=== PATIENT | female | born 1985 | race Caucasian/White ===

== ENCOUNTER 2016-07-05 15:47 | Emergency (ER) | payer BC, OTHER ==
[2016-07-05 16:01] VITALS: BP 123/76; PULSE 104; RESP 20; TEMP 98.3
--- NOTE | 2016-07-05 16:54 | XR ---
EXAMINATION TYPE: XR chest 2V DATE OF EXAM: 07/05/2016 4:46 PM COMPARISON: 07/08/2010 INDICATION: Pain sore throat cough TECHNIQUE: Single frontal view of the chest is obtained. FINDINGS: The heart size is normal. The pulmonary vasculature is normal. The lungs are clear. IMPRESSION: 1. No acute pulmonary process.
--- NOTE | 2016-07-05 16:56 | ED ---
Pediatric HENT HPI - General Chief Complaint: ENT Stated Complaint: Cough Time Seen by Provider: 07/05/16 16:08 Source: patient, RN notes reviewed Mode of arrival: ambulatory Limitations: no limitations - History of Present Illness Initial Comments: Patient is a 30-year-old female presenting to the emergency department with her 2 children with similar symptoms of cough and sore throat. Patient reports that she's had the symptoms for approximately one day. She states that she is not had any Motrin or Tylenol. She denies any significant past medical history. Patient is a smoker. - Related Data Home Medications Medication Instructions Recorded Confirmed Hydroxychloroquine Sulfate 200 mg PO BID 10/17/15 07/05/16 [Plaquenil] Sulindac 200 mg PO BID 10/17/15 07/05/16 Allergies Allergy/AdvReac Type Severity Reaction Status Date / Time adhesive Allergy Rash/Hives Verified 07/05/16 16:36 Penicillins Allergy Rash/Hives Verified 07/05/16 16:36 Sulfa (Sulfonamide Allergy Rash/Hives Verified 07/05/16 16:36 Antibiotics) sulfite Allergy Rash/Hives Verified 07/05/16 16:36 Review of Systems ROS Statement: Those systems with pertinent positive or pertinent negative responses have been documented in the HPI. ROS Other: All systems not noted in ROS Statement are negative. Past Medical History Past Medical History: Rheumatoid Arthritis (RA) Additional Past Medical History / Comment(s): Migraines, blood in stool, History of Any Multi-Drug Resistant Organisms: None Reported Past Surgical History: Adenoidectomy, Tonsillectomy Additional Past Surgical History / Comment(s): Laparoscopy-ovarian cyst; Nasal surgery-fx Past Anesthesia/Blood Transfusion Reactions: No Reported Reaction Past Psychological History: Depression Smoking Status: Current some day smoker Past Alcohol Use History: None Reported Additional Past Alcohol Use History / Comment(s): smokes 1/2 PPD , started smoking age 18 Past Drug Use History: None Reported - Past Family History Mother Family Medical History: No Reported History Additional Family Medical History / Comment(s): Endometriosis General Exam Limitations: no limitations General appearance: alert, in no apparent distress Head exam: Present: atraumatic, normocephalic, normal inspection Eye exam: Present: normal appearance, PERRL, EOMI. Absent: scleral icterus, conjunctival injection, periorbital swelling ENT exam: Present: normal exam, mucous membranes moist Neck exam: Present: normal inspection. Absent: tenderness, meningismus, lymphadenopathy Respiratory exam: Present: normal lung sounds bilaterally. Absent: respiratory distress, wheezes, rales, rhonchi, stridor Cardiovascular Exam: Present: regular rate, normal rhythm, normal heart sounds. Absent: systolic murmur, diastolic murmur, rubs, gallop, clicks GI/Abdominal exam: Present: soft, normal bowel sounds. Absent: distended, tenderness, guarding, rebound, rigid Extremities exam: Present: normal inspection, full ROM, normal capillary refill. Absent: tenderness, pedal edema, joint swelling, calf tenderness Back exam: Present: normal inspection Neurological exam: Present: alert, oriented X3, CN II-XII intact Psychiatric exam: Present: normal affect, normal mood Skin exam: Present: warm, dry, intact, normal color. Absent: rash Course Vital Signs 07/05/16 07/05/16 16:00 18:18 Temperature 98.3 F 98.3 F Pulse Rate 104 H 104 H Respiratory 20 20 Rate Blood Pressure 123/76 123/76 O2 Sat by Pulse 97 97 Oximetry Medical Decision Making - Medical Decision Making Patient is a d30 year old female with cough and congestion for one day. CXR is negative. Patient has no wheezing. She is a smoker. I advised to discontinue smoking and purchase OTC cough medication. Patient's children's flu was negative. Patient understands treatment plan and will comply. - Radiology Data Radiology results: report reviewed Physical x-rays negative for any acute process. Disposition Clinical Impression: Upper respiratory infection Disposition: HOME SELF-CARE Condition: Good Instructions: Upper Respiratory Infection (ED) Additional Instructions: Rest, increase fluids, follow-up with primary care provider in 1-2 days. Take tylenol and motrin for pain. Referrals: Abran Siu MD [Primary Care Provider] - 1-2 days Time of Disposition: 17:52
== END 2016-07-05 18:18 | disposition home or self-care (01) ==
LOC: EC 15:47
DX: J06.9 Acute upper respiratory infection, unspecified (principal); M19.90 Unspecified osteoarthritis, unspecified site; F17.200 Nicotine dependence, unspecified, uncomplicated; Z79.1 Long term (current) use of non-steroidal anti-inflammatories (NSAID); Z79.899 Other long term (current) drug therapy; Z88.0 Allergy status to penicillin; Z88.2 Allergy status to sulfonamides; Z91.048 Other nonmedicinal substance allergy status; Z90.89 Acquired absence of other organs
CPT/HCPCS: 71020; 99283

== ENCOUNTER 2017-06-11 01:39 | Emergency (ER) | payer BC, OTHER ==
[2017-06-11] MEDS ORDERED: CLINDAMYCIN 150 MG CAP PO STA (01:55)
[2017-06-11] MEDS ORDERED: BUPIVACAINE (PF) 0.5% 30 ML VIAL SQ STA (01:56)
--- NOTE | 2017-06-11 01:58 | ED ---
ENT HPI - General Chief complaint: Dental/Oral Stated complaint: dental pain,fall Time Seen by Provider: 06/11/17 01:49 Source: patient Mode of arrival: ambulatory Limitations: no limitations - History of Present Illness Initial comments: 31-year-old female patient presents to the emergency department today for complaints of right lower dental pain. Patient states that she has had pain for the last couple of days. States that tonight is become much worse. She states that the 2 teeth in the very back are broken off at the gumline. She states that the pain is unbearable. States she is unable to eat or drink due to this. States she is unable sleep. She denies any fevers or chills. Denies any nausea or vomiting. Denies any difficulty opening or closing her mouth. Denies any difficulty swallowing. She has not contacted a dentist yet but states she plans to in the morning. States she has taken ibuprofen and acetaminophen without relief. Patient denies any recent rash, shortness breath, chest pain, abdominal pain, diarrhea, constipation, back pain, numbness, tingling, dizziness, weakness, hematuria, dysuria, urinary urgency, urinary frequency, headache, visual changes, or any other complaints. - Related Data Home Medications Medication Instructions Recorded Confirmed Hydroxychloroquine Sulfate 200 mg PO BID 10/17/15 07/05/16 [Plaquenil] Sulindac 200 mg PO BID 10/17/15 07/05/16 Previous Rx's Medication Instructions Recorded Acetaminophen-Codeine 300-30mg 1 tab PO Q6H PRN #15 tablet 06/11/17 [Tylenol #3] Clindamycin HCl 300 mg PO Q8H #30 cap 06/11/17 Allergies Allergy/AdvReac Type Severity Reaction Status Date / Time adhesive Allergy Rash/Hives Verified 06/11/17 01:46 Penicillins Allergy Rash/Hives Verified 06/11/17 01:46 Sulfa (Sulfonamide Allergy Rash/Hives Verified 06/11/17 01:46 Antibiotics) sulfite Allergy Rash/Hives Verified 06/11/17 01:46 Review of Systems ROS Statement: Those systems with pertinent positive or pertinent negative responses have been documented in the HPI. ROS Other: All systems not noted in ROS Statement are negative. Past Medical History Past Medical History: Rheumatoid Arthritis (RA) Additional Past Medical History / Comment(s): Migraines, blood in stool, History of Any Multi-Drug Resistant Organisms: None Reported Past Surgical History: Adenoidectomy, Tonsillectomy Additional Past Surgical History / Comment(s): Laparoscopy-ovarian cyst; Nasal surgery-fx Past Anesthesia/Blood Transfusion Reactions: No Reported Reaction Past Psychological History: Depression Smoking Status: Current some day smoker Past Alcohol Use History: None Reported Past Drug Use History: None Reported - Past Family History Mother Family Medical History: No Reported History Additional Family Medical History / Comment(s): Endometriosis General Exam Limitations: no limitations General appearance: alert, in no apparent distress, other (This is a well- developed, well-nourished adult female patient in mild distress related to pain. Vital signs upon presentation are temperature 99.8F, pulse 92, respirations 18, blood pressure 136/88, pulse ox 100% on room air.) Eye exam: Present: normal appearance, PERRL, EOMI. Absent: scleral icterus, conjunctival injection, periorbital swelling ENT exam: Present: normal exam, normal oropharynx, mucous membranes moist, other (Patient has very poor dentition. Teeth #31 and 32 are broken at the gumline with exposed nerve root. There is surrounding gingival erythema and swelling. No evidence of drainable abscess. No facial swelling.) Neck exam: Present: normal inspection. Absent: tenderness, meningismus, lymphadenopathy Respiratory exam: Present: normal lung sounds bilaterally. Absent: respiratory distress, wheezes, rales, rhonchi, stridor Cardiovascular Exam: Present: regular rate, normal rhythm, normal heart sounds. Absent: systolic murmur, diastolic murmur, rubs, gallop, clicks GI/Abdominal exam: Present: soft, normal bowel sounds. Absent: distended, tenderness, guarding, rebound, rigid Neurological exam: Present: alert, oriented X3, CN II-XII intact Psychiatric exam: Present: normal affect, normal mood Skin exam: Present: warm, dry, intact, normal color. Absent: rash Course Vital Signs 06/11/17 06/11/17 01:43 03:02 Temperature 99.8 F H 98.2 F Pulse Rate 92 68 Respiratory 18 16 Rate Blood Pressure 136/88 134/89 O2 Sat by Pulse 100 99 Oximetry Procedures - Nerve Block Consent Obtained: verbal consent Time Out Performed: Yes Local Anesthetic Used: Marcaine 0.5% Amount of anesthesia used: 3 Side: right Intraoral Nerve Block: inferior alveolar Complications: none Patient Tolerated Procedure: well Medical Decision Making - Medical Decision Making 31-year-old female patient presented to the emergency department today for complaints of right lower dental pain. Physical examination did reveal tooth # 31 and 32 were broken down to the gumline. There was surrounding gingival erythema and swelling. No evidence of drainable abscess. I did perform an intraoral nerve block. Patient did have mild relief of symptoms at time of discharge. Patient was given prescription for Tylenol 3 with codeine and clindamycin. She was given a starter pack for Tylenol 3 and given one dose of clindamycin here in the department. I instructed her to follow-up with dentistry as soon as possible. I instructed her to return here immediately for any new, worsening, or concerning symptoms. She verbalizes understanding and agrees this plan. Disposition Clinical Impression: Pain, dental, Dental infection Disposition: HOME SELF-CARE Condition: Good Instructions: Dental Abscess (ED), Dental Caries (ED) Additional Instructions: Take medications as directed. Follow-up with the dentist as soon as possible. Return here immediately for any new, worsening, or concerning symptoms. Prescriptions: Acetaminophen-Codeine 300-30mg [Tylenol #3] 1 tab PO Q6H PRN #15 tablet PRN Reason: Pain Clindamycin HCl 300 mg PO Q8H #30 cap Referrals: Abran Siu MD [Primary Care Provider] - 1-2 days Time of Disposition: 02:39
[2017-06-11] MEDS ORDERED: ACET/COD 300 MG/30 MG STARTER PACK 6 TAB BTL PO STA (02:37)
[2017-06-11 03:03] VITALS: BP 134/89; PULSE 68; RESP 16; TEMP 98.2
== END 2017-06-11 03:02 | disposition home or self-care (01) ==
LOC: EC 01:39
DX: K04.7 Periapical abscess without sinus (principal); M06.9 Rheumatoid arthritis, unspecified; F17.200 Nicotine dependence, unspecified, uncomplicated; Z79.1 Long term (current) use of non-steroidal anti-inflammatories (NSAID); Z79.899 Other long term (current) drug therapy; Z88.0 Allergy status to penicillin; Z88.2 Allergy status to sulfonamides; Z91.02 Food additives allergy status; Z91.09 Other allergy status, other than to drugs and biological substances
CPT/HCPCS: 64400; 99283

== ENCOUNTER 2017-06-24 23:54 | Emergency (ER) | payer BC ==
[2017-06-25 00:06] VITALS: BP 134/90; PULSE 85; RESP 18; TEMP 97.6
[2017-06-25] MEDS ORDERED: BUPIVACAINE (PF) 0.5% 30 ML VIAL SQ STA (00:43)
[2017-06-25] MEDS ORDERED: ACET/COD 300 MG/30 MG STARTER PACK 6 TAB BTL PO STA (00:45)
[2017-06-25] MEDS ORDERED: CLINDAMYCIN 150 MG CAP PO STA (00:45)
--- NOTE | 2017-06-25 00:47 | ED ---
ENT HPI - General Chief complaint: Dental/Oral Stated complaint: Dental Pain/Abcess Time Seen by Provider: 06/25/17 00:17 Source: patient, RN notes reviewed, old records reviewed Mode of arrival: ambulatory Limitations: no limitations - History of Present Illness Initial comments: 31-year-old female presents emergency room chief complaint of worsening dental pain. She reports that she has infection over the tooth #30 and 29. She was started on clindamycin 2 weeks ago. She was feeling better after she completed the antibiotics with the pain seemed to reoccur the past 2 days. She states that she sees a dentist in one week. She denies any fever or chills. No trismus. - Related Data Home Medications Medication Instructions Recorded Confirmed Hydroxychloroquine Sulfate 200 mg PO BID 10/17/15 07/05/16 [Plaquenil] Sulindac 200 mg PO BID 10/17/15 07/05/16 Previous Rx's Medication Instructions Recorded Acetaminophen-Codeine 300-30mg 1 tab PO Q6H PRN #15 tablet 06/11/17 [Tylenol #3] Clindamycin HCl 300 mg PO Q8H #30 cap 06/11/17 Acetaminophen-Codeine 300-30mg 1 tab PO Q6H PRN #12 tablet 06/25/17 [Tylenol #3] Clindamycin [Cleocin] 450 mg PO TID 7 Days capsule 06/25/17 Allergies Allergy/AdvReac Type Severity Reaction Status Date / Time adhesive Allergy Rash/Hives Verified 06/25/17 00:06 Penicillins Allergy Rash/Hives Verified 06/25/17 00:06 Sulfa (Sulfonamide Allergy Rash/Hives Verified 06/25/17 00:06 Antibiotics) sulfite Allergy Rash/Hives Verified 06/25/17 00:06 Review of Systems ROS Statement: Those systems with pertinent positive or pertinent negative responses have been documented in the HPI. ROS Other: All systems not noted in ROS Statement are negative. Past Medical History Past Medical History: Rheumatoid Arthritis (RA) Additional Past Medical History / Comment(s): Migraines, blood in stool, History of Any Multi-Drug Resistant Organisms: None Reported Past Surgical History: Adenoidectomy, Tonsillectomy Additional Past Surgical History / Comment(s): Laparoscopy-ovarian cyst; Nasal surgery-fx Past Anesthesia/Blood Transfusion Reactions: No Reported Reaction Past Psychological History: Depression Smoking Status: Current some day smoker Past Alcohol Use History: None Reported Past Drug Use History: None Reported - Past Family History Mother Family Medical History: No Reported History Additional Family Medical History / Comment(s): Endometriosis General Exam - General Exam Comments Initial Comments: This is a 31 year old female, no distress. Limitations: no limitations General appearance: alert, in no apparent distress Head exam: Present: atraumatic, normocephalic, normal inspection Eye exam: Present: normal appearance, PERRL, EOMI. Absent: scleral icterus, conjunctival injection, periorbital swelling ENT exam: Present: normal exam, mucous membranes moist, other (Patient has some minor swelling over the right lower jaw.). Absent: normal oropharynx (Patient has minor erythema over gums over 29 and 30. Patient has no focal abscess) Neck exam: Present: normal inspection. Absent: tenderness, meningismus, lymphadenopathy Respiratory exam: Present: normal lung sounds bilaterally. Absent: respiratory distress, wheezes, rales, rhonchi, stridor Cardiovascular Exam: Present: regular rate, normal rhythm, normal heart sounds. Absent: systolic murmur, diastolic murmur, rubs, gallop, clicks GI/Abdominal exam: Present: soft, normal bowel sounds. Absent: distended, tenderness, guarding, rebound, rigid Extremities exam: Present: normal inspection, full ROM, normal capillary refill. Absent: tenderness, pedal edema, joint swelling, calf tenderness Back exam: Present: normal inspection Neurological exam: Present: alert, oriented X3, CN II-XII intact Psychiatric exam: Present: normal affect, normal mood Skin exam: Present: warm, dry, intact, normal color. Absent: rash Course Vital Signs 06/25/17 00:03 Temperature 97.6 F Pulse Rate 85 Respiratory 18 Rate Blood Pressure 134/90 O2 Sat by Pulse 99 Oximetry Procedures - Nerve Block Local Anesthetic Used: Marcaine 0.5% Amount of anesthesia used: 4 Side: right Intraoral Nerve Block: inferior alveolar Procedure Successful: Yes Complications: none Patient Tolerated Procedure: well, no complications Medical Decision Making - Medical Decision Making This patient is a 31-year-old female chief complaint of worsening dental pain. She has evidence of gingival erythema over tooth #30 and 29. These are both broken teeth with multiple dental caries. She has no focal abscess drained this time. She was started on clindamycin and Tylenol with codeine approximately one month ago and had some resolutions of her symptoms. She states she has a dentist appointment in one week. Patient has no trismus, no signs of Binh angina. Patient was given an inferior alveolar block and reports immediate relief. I will discharge the patient with another round of antibiotics until she can follow-up with her dentist. Discussed prompt follow- up. All questions were answered and return parameters were discussed. Disposition Clinical Impression: Dental infection Disposition: HOME SELF-CARE Condition: Good Instructions: Dental Abscess (ED) Prescriptions: Acetaminophen-Codeine 300-30mg [Tylenol #3] 1 tab PO Q6H PRN #12 tablet PRN Reason: Pain Clindamycin [Cleocin] 450 mg PO TID 7 Days capsule Referrals: Abran Siu MD [Primary Care Provider] - 1-2 days Time of Disposition: 00:59
== END 2017-06-25 01:05 | disposition home or self-care (01) ==
LOC: EC 23:54
DX: K04.7 Periapical abscess without sinus (principal); M06.9 Rheumatoid arthritis, unspecified; F17.200 Nicotine dependence, unspecified, uncomplicated; Z88.0 Allergy status to penicillin; Z88.2 Allergy status to sulfonamides; Z88.8 Allergy status to other drugs, medicaments and biological substances; Z91.048 Other nonmedicinal substance allergy status; Z79.1 Long term (current) use of non-steroidal anti-inflammatories (NSAID); Z79.899 Other long term (current) drug therapy
CPT/HCPCS: 64400; 99283

== ENCOUNTER 2017-08-25 02:05 | Emergency (ER) | payer BC ==
[2017-08-25 02:19] VITALS: PULSE 85
[2017-08-25] MEDS ORDERED: METOCLOPRAMIDE 5 MG/ML 2 ML VIAL IVP STA (02:37)
[2017-08-25] MEDS ORDERED: SODIUM CHLORIDE 0.9% 1,000 ML IV STA (02:37)
[2017-08-25] MEDS ORDERED: KETOROLAC 30 MG/ML 1 ML VIAL IVP STA (02:37)
[2017-08-25] MEDS ORDERED: diphenhydrAMINE 50 MG/ML 1 ML VIAL IVP STA (02:37)
--- NOTE | 2017-08-25 02:44 | ED ---
Headache HPI - General Chief Complaint: Headache Stated Complaint: migraine Time Seen by Provider: 08/25/17 02:31 Source: RN notes reviewed Mode of arrival: ambulatory Limitations: no limitations - History of Present Illness Initial Comments: This is a 31-year-old female who presents to the emergency department with chief complaint of migraines. Patient states that she does have a history of migraines. She states that she has been having a migraine for the past 24 hours. She states that she has taken aspirin, ibuprofen, Tylenol and Excedrin. She states, "everything but narcotics." Patient states that the migraine started on the right side and is now on the left side. She states it starts at the base of her skull and travels to her left eye. She states that her current headache is similar to previous headaches. Denies any recent falls, injuries or trauma. She describes the pain as constant and throbbing. She admits to associated nausea and vomiting. Denies fever, chills, chest pain, shortness of breath, abdominal pain, constipation or diarrhea, dysuria or hematuria, numbness or tingling, or vision changes. - Related Data Home Medications Medication Instructions Recorded Confirmed Hydroxychloroquine Sulfate 200 mg PO BID 10/17/15 08/25/17 [Plaquenil] Sulindac 200 mg PO BID 10/17/15 08/25/17 Allergies Allergy/AdvReac Type Severity Reaction Status Date / Time adhesive Allergy Rash/Hives Verified 08/25/17 02:19 Penicillins Allergy Rash/Hives Verified 08/25/17 02:19 Sulfa (Sulfonamide Allergy Rash/Hives Verified 08/25/17 02:19 Antibiotics) sulfite Allergy Rash/Hives Verified 08/25/17 02:19 Review of Systems ROS Statement: Those systems with pertinent positive or pertinent negative responses have been documented in the HPI. ROS Other: All systems not noted in ROS Statement are negative. Past Medical History Past Medical History: Rheumatoid Arthritis (RA) Additional Past Medical History / Comment(s): Migraines, blood in stool, History of Any Multi-Drug Resistant Organisms: None Reported Past Surgical History: Adenoidectomy, Tonsillectomy Additional Past Surgical History / Comment(s): Laparoscopy-ovarian cyst; Nasal surgery-fx Past Anesthesia/Blood Transfusion Reactions: No Reported Reaction Past Psychological History: Depression Smoking Status: Current some day smoker Past Alcohol Use History: None Reported Past Drug Use History: None Reported - Past Family History Mother Family Medical History: No Reported History Additional Family Medical History / Comment(s): Endometriosis General Exam - General Exam Comments Initial Comments: General: Awake and alert, well-developed; in no apparent distress. HEENT: Head atraumatic, normocephalic. Pupils are equal, round and reactive to light. Extraocular movements intact. Oropharynx moist without erythema or exudate. Neck: Supple. Normal ROM. Cardiovascular: Regular rate and rhythm. No murmurs, rubs or gallops. Chest symmetrical. Respiratory: Lungs clear to auscultation bilaterally. No wheezes, rales or rhonchi. Normal respiratory effort with no use of accessory muscles. Abdomen: Soft, non-tender, non-distended. No rigidity, rebound or guarding. Normal bowel sounds in all 4 quadrants. Musculoskeletal: Normal ROM, no tenderness bilateral upper and lower extremities. Skin: [place], warm and dry without rashes or lesions. Neurological: Alert and oriented x3. CN II-XII grossly intact. Speech is fluent and answers are appropriate. No focal neuro deficits. Limitations: no limitations Course Vital Signs 08/25/17 02:16 Temperature 97.6 F Pulse Rate 85 Respiratory 20 Rate Blood Pressure 129/85 O2 Sat by Pulse 100 Oximetry - Reevaluation(s) Reevaluation #1: 08/25/17 03:17 At this time, patient states that symptoms are improving. Will allow for patient to finish receiving liter bolus at this time and will recheck shortly. Medical Decision Making - Medical Decision Making This is a 31-year-old female who presents to the emergency department with chief complaint of migraine. Patient states that she does have a history of migraines and that current migraine is similar to previous episodes. Denies any recent falls, injuries or trauma. Denies vision changes. Patient given fluids and headache cocktail while in the emergency department. She reports improvement in her symptoms. Vital signs are stable and she is in no acute distress. She will be discharged home at this time. She is in agreement and voices understanding. All questions answered. Disposition Clinical Impression: Migraine Disposition: HOME SELF-CARE Condition: Good Instructions: Migraine Headache (ED) Additional Instructions: Please follow up with primary care provider within 1-2 days. Return to emergency department if symptoms should worsen or any concerns arise. Is patient prescribed a controlled substance at d/c from ED?: No Referrals: Abran Siu MD [Primary Care Provider] - 1-2 days Time of Disposition: 03:34
[2017-08-25 03:43] VITALS: BP 123/80; RESP 16; TEMP 98.4
== END 2017-08-25 03:42 | disposition home or self-care (01) ==
LOC: EC 02:05
DX: G43.909 Migraine, unspecified, not intractable, without status migrainosus (principal); M06.9 Rheumatoid arthritis, unspecified; F17.200 Nicotine dependence, unspecified, uncomplicated; Z79.1 Long term (current) use of non-steroidal anti-inflammatories (NSAID); Z79.899 Other long term (current) drug therapy; Z88.0 Allergy status to penicillin; Z88.2 Allergy status to sulfonamides; Z91.02 Food additives allergy status; Z91.09 Other allergy status, other than to drugs and biological substances
CPT/HCPCS: 99283; 96374; 96375 ×2; 96361; J1200; J2765; J1885

== ENCOUNTER 2020-04-20 22:14 | Emergency (ER) | payer BC ==
[2020-04-20 22:20] VITALS: BP 142/87; PULSE 99; RESP 20; TEMP 98.4
[2020-04-20] MEDS ORDERED: PANTOPRAZOLE 40 MG/10 ML VIAL IVP STA (23:02)
[2020-04-20] MEDS ORDERED: ONDANSETRON 4 MG/2 ML VIAL IVP STA (23:02)
[2020-04-20] MEDS ORDERED: SODIUM CHLORIDE 0.9% 1,000 ML IV STA (23:02)
--- NOTE | 2020-04-20 23:03 | ED ---
GI Bleed HPI - General Chief complaint: Abdominal Pain Stated complaint: Vomiting,Abd Pain Time Seen by Provider: 04/20/20 22:26 Source: patient, RN notes reviewed, old records reviewed Mode of arrival: ambulatory Limitations: no limitations - History of Present Illness Initial comments: This is a 34-year-old female DF for evaluation of 12 hours ago having an episode of nausea and vomiting one episode of vomiting which she thought may have been dark vomit her concern is that she's had family members with her, the past with upper GI bleed which resulted in significant blood loss. Patient concern for blood loss or ulcer MD complaint: coffee ground emesis -: hour(s) (12) Severity scale (1-10): 3 Quality: burning Consistency: constant Improves with: none Worsens with: none Context: history of GI bleed Associated Symptoms: nausea, vomiting - Related Data Home Medications Medication Instructions Recorded Confirmed Hydroxychloroquine Sulfate 200 mg PO BID 10/17/15 04/20/20 [Plaquenil] Sulindac 200 mg PO BID 10/17/15 04/20/20 Allergy Pill (Unknown 1 tab PO DAILY 04/20/20 04/20/20 Strength/Brand) Calcium Carbonate/Vitamin D3 1 tab PO DAILY 04/20/20 04/20/20 [Calcium 600-Vit D3 800 Caplet] Gabapentin [Neurontin] 100 mg PO DAILY 04/20/20 04/20/20 Omeprazole [PriLOSEC] 20 mg PO ONCE PRN 04/20/20 04/20/20 Allergies Allergy/AdvReac Type Severity Reaction Status Date / Time adhesive Allergy Rash/Hives Verified 04/20/20 23:45 Penicillins Allergy Rash/Hives Verified 04/20/20 23:45 Sulfa (Sulfonamide Allergy Rash/Hives Verified 04/20/20 23:45 Antibiotics) sulfite Allergy Rash/Hives Verified 04/20/20 23:45 Review of Systems ROS Statement: Those systems with pertinent positive or pertinent negative responses have been documented in the HPI. ROS Other: All systems not noted in ROS Statement are negative. Past Medical History Past Medical History: Rheumatoid Arthritis (RA) Additional Past Medical History / Comment(s): Migraines, blood in stool, History of Any Multi-Drug Resistant Organisms: None Reported Past Surgical History: Adenoidectomy, Tonsillectomy Additional Past Surgical History / Comment(s): Laparoscopy-ovarian cyst; Nasal surgery-fx Past Anesthesia/Blood Transfusion Reactions: No Reported Reaction Past Psychological History: Depression Smoking Status: Current every day smoker Past Alcohol Use History: None Reported Past Drug Use History: None Reported - Past Family History Mother Family Medical History: No Reported History Additional Family Medical History / Comment(s): Endometriosis General Exam Limitations: no limitations General appearance: alert, in no apparent distress Head exam: Present: atraumatic, normocephalic, normal inspection Eye exam: Present: normal appearance, PERRL, EOMI. Absent: scleral icterus, conjunctival injection, periorbital swelling ENT exam: Present: normal exam, mucous membranes moist Neck exam: Present: normal inspection. Absent: tenderness, meningismus, lymphadenopathy Respiratory exam: Present: normal lung sounds bilaterally. Absent: respiratory distress, wheezes, rales, rhonchi, stridor Cardiovascular Exam: Present: regular rate, normal rhythm, normal heart sounds. Absent: systolic murmur, diastolic murmur, rubs, gallop, clicks GI/Abdominal exam: Present: soft, normal bowel sounds. Absent: distended, tenderness, guarding, rebound, rigid Extremities exam: Present: normal inspection, full ROM, normal capillary refill. Absent: tenderness, pedal edema, joint swelling, calf tenderness Back exam: Present: normal inspection Neurological exam: Present: alert, oriented X3, CN II-XII intact Psychiatric exam: Present: normal affect, normal mood Skin exam: Present: warm, dry, intact, normal color. Absent: rash Course Vital Signs 04/20/20 22:18 Temperature 98.4 F Pulse Rate 99 Respiratory 20 Rate Blood Pressure 142/87 O2 Sat by Pulse 99 Oximetry - Reevaluation(s) Reevaluation #1: medical record is reviewed patient has symptoms resolved and feeling better patient is informed of results and ok for discharge Medical Decision Making - Medical Decision Making 34 female DF for evaluation patient coming in for vomiting. Patient concerned of blood in the vomit labwork is normal vital signs are normal and stable with no recurrent vomiting here in the ER patient can be discharged - Lab Data Result diagrams: 04/20/20 23:14 04/20/20 23:14 Lab Results 04/20/20 04/20/20 04/20/20 Range/Units 22:46 22:46 23:14 WBC 3.5 L (3.8-10.6) k/uL RBC 3.31 L (3.80-5.40) m/uL Hgb 9.1 L (11.4-16.0) gm/dL Hct 27.9 L (34.0-46.0) % MCV 84.3 (80.0-100.0) fL MCH 27.6 (25.0-35.0) pg MCHC 32.7 (31.0-37.0) g/dL RDW 14.1 (11.5-15.5) % Plt Count 196 (150-450) k/uL MPV 7.6 Neutrophils % 48 % Lymphocytes % 39 % Monocytes % 6 % Eosinophils % 4 % Basophils % 1 % Neutrophils # 1.7 (1.3-7.7) k/uL Lymphocytes # 1.4 (1.0-4.8) k/uL Monocytes # 0.2 (0-1.0) k/uL Eosinophils # 0.1 (0-0.7) k/uL Basophils # 0.0 (0-0.2) k/uL Hypochromasia Slight Sodium (137-145) mmol/L Potassium (3.5-5.1) mmol/L Chloride (98-107) mmol/L Carbon Dioxide (22-30) mmol/L Anion Gap mmol/L BUN (7-17) mg/dL Creatinine (0.52-1.04) mg/dL Est GFR (CKD-EPI)AfAm (>60 ml/min/1.73 sqM) Est GFR (CKD-EPI)NonAf (>60 ml/min/1.73 sqM) Glucose (74-99) mg/dL Calcium (8.4-10.2) mg/dL Total Bilirubin (0.2-1.3) mg/dL AST (14-36) U/L ALT (4-34) U/L Alkaline Phosphatase (38-126) U/L Total Protein (6.3-8.2) g/dL Albumin (3.5-5.0) g/dL Amylase (30-110) U/L Lipase (23-300) U/L Urine Color Yellow Urine Appearance Clear (Clear) Urine pH 6.0 (5.0-8.0) Ur Specific Llewellyn 1.027 (1.001-1.035) Urine Protein 1+ H (Negative) Urine Glucose (UA) Negative (Negative) Urine Ketones 1+ H (Negative) Urine Blood Moderate H (Negative) Urine Nitrite Negative (Negative) Urine Bilirubin Negative (Negative) Urine Urobilinogen 2.0 (<2.0) mg/dL Ur Leukocyte Esterase Negative (Negative) Urine RBC >182 H (0-5) /hpf Urine WBC 3 (0-5) /hpf Ur Squamous Epith Cells 2 (0-4) /hpf Urine Bacteria Rare H (None) /hpf Urine Mucus Many H (None) /hpf Urine HCG, Qual Not Detected (Not Detectd) 04/20/20 Range/Units 23:14 WBC (3.8-10.6) k/uL RBC (3.80-5.40) m/uL Hgb (11.4-16.0) gm/dL Hct (34.0-46.0) % MCV (80.0-100.0) fL MCH (25.0-35.0) pg MCHC (31.0-37.0) g/dL RDW (11.5-15.5) % Plt Count (150-450) k/uL MPV Neutrophils % % Lymphocytes % % Monocytes % % Eosinophils % % Basophils % % Neutrophils # (1.3-7.7) k/uL Lymphocytes # (1.0-4.8) k/uL Monocytes # (0-1.0) k/uL Eosinophils # (0-0.7) k/uL Basophils # (0-0.2) k/uL Hypochromasia Sodium 135 L (137-145) mmol/L Potassium 3.8 (3.5-5.1) mmol/L Chloride 109 H (98-107) mmol/L Carbon Dioxide 23 (22-30) mmol/L Anion Gap 3 mmol/L BUN 24 H (7-17) mg/dL Creatinine 0.67 (0.52-1.04) mg/dL Est GFR (CKD-EPI)AfAm >90 (>60 ml/min/1.73 sqM) Est GFR (CKD-EPI)NonAf >90 (>60 ml/min/1.73 sqM) Glucose 76 (74-99) mg/dL Calcium 8.7 (8.4-10.2) mg/dL Total Bilirubin 0.3 (0.2-1.3) mg/dL AST 28 (14-36) U/L ALT 15 (4-34) U/L Alkaline Phosphatase 46 (38-126) U/L Total Protein 6.3 (6.3-8.2) g/dL Albumin 3.6 (3.5-5.0) g/dL Amylase 50 (30-110) U/L Lipase 106 (23-300) U/L Urine Color Urine Appearance (Clear) Urine pH (5.0-8.0) Ur Specific Llewellyn (1.001-1.035) Urine Protein (Negative) Urine Glucose (UA) (Negative) Urine Ketones (Negative) Urine Blood (Negative) Urine Nitrite (Negative) Urine Bilirubin (Negative) Urine Urobilinogen (<2.0) mg/dL Ur Leukocyte Esterase (Negative) Urine RBC (0-5) /hpf Urine WBC (0-5) /hpf Ur Squamous Epith Cells (0-4) /hpf Urine Bacteria (None) /hpf Urine Mucus (None) /hpf Urine HCG, Qual (Not Detectd) - Radiology Data Radiology results: report reviewed (X-ray KUB is negative for acute disease), image reviewed Disposition Clinical Impression: Abdominal pain, Nausea & vomiting, UGIB (upper gastrointestinal bleed) Disposition: HOME SELF-CARE Condition: Good Instructions (If sedation given, give patient instructions): Gastrointestinal Bleeding (ED), Abdominal Pain (ED) Is patient prescribed a controlled substance at d/c from ED?: No Referrals: Desiree Michele DO [Primary Care Provider] - 1-2 days
[2020-04-20 23:19] LABS: Appearance,Urine Clear (Clear); Bacteria,Urine Rare /hpf; Bilirubin,Urine Negative (Negative); Blood,Urine Moderate (Negative); Color,Urine Yellow; Glucose,Urine (UA) Negative (Negative); Ketones,Urine 1+ (Negative); Leukocyte Esterase,Urine Negative (Negative); Mucus,Urine Many /hpf; Nitrite,Urine Negative (Negative); Protein,Urine 1+ (Negative); RBC,Urine >182 /hpf (0-5); Specific Gravity,Urine 1.027 (1.001-1.035); Squamous Epithelial Cell,Urine 2 /hpf (0-4); WBC,Urine 3 /hpf (0-5)
[2020-04-20 23:28] LABS: Basophils % (A) 1 %; Eosinophils # (A) 0.1 k/uL (0-0.7); Eosinophils % (A) 4 %; HCT 27.9 % (34.0-46.0); HGB 9.1 gm/dL (11.4-16.0); Hypochromasia Slight; Lymphocytes # (A) 1.4 k/uL (1.0-4.8); Lymphocytes % (A) 39 %; MCH 27.6 pg (25.0-35.0); MCHC 32.7 g/dL (31.0-37.0); MCV 84.3 fL (80.0-100.0); Mean Platelet Volume 7.6; Monocytes # (A) 0.2 k/uL (0-1.0); Monocytes % (A) 6 %; Neutrophils # (A) 1.7 k/uL (1.3-7.7); Neutrophils % (A) 48 %; Platelet Count 196 k/uL (150-450); RBC 3.31 m/uL (3.80-5.40); RDW 14.1 % (11.5-15.5); WBC 3.5 k/uL (3.8-10.6)
[2020-04-20 23:57] LABS: ALT 15 U/L (4-34); AST 28 U/L (14-36); African American GFR (CKD) >90 (>60 ml/min/1.73 sqM); Albumin 3.6 g/dL (3.5-5.0); Alkaline Phosphatase 46 U/L (38-126); Amylase 50 U/L (30-110); Anion Gap 3 mmol/L; Blood Urea Nitrogen 24 mg/dL (7-17); Calcium 8.7 mg/dL (8.4-10.2); Carbon Dioxide 23 mmol/L (22-30); Chloride 109 mmol/L (98-107); Glucose 76 mg/dL (74-99); Lipase 106 U/L (23-300); Non-African American GFR(CKD) >90 (>60 ml/min/1.73 sqM); Potassium 3.8 mmol/L (3.5-5.1); Sodium 135 mmol/L (137-145); Total Bilirubin 0.3 mg/dL (0.2-1.3); Total Protein 6.3 g/dL (6.3-8.2)
--- NOTE | 2020-04-21 01:31 | XR ---
EXAM: XR Abdomen, 1 View CLINICAL HISTORY: vomiting blood, pain TECHNIQUE: Frontal supine view of the abdomen/pelvis. COMPARISON: No relevant prior studies available. FINDINGS: Gastrointestinal tract: Unremarkable. No dilation. No evidence of free air. Bones/joints: Unremarkable. Other findings: No pathologic calcifications. IMPRESSION: No acute findings.
== END 2020-04-21 01:17 | disposition home or self-care (01) ==
LOC: EC 22:14
DX: K92.2 Gastrointestinal hemorrhage, unspecified (principal); M06.9 Rheumatoid arthritis, unspecified; F17.200 Nicotine dependence, unspecified, uncomplicated; Z79.899 Other long term (current) drug therapy; Z88.0 Allergy status to penicillin; Z88.2 Allergy status to sulfonamides; Z91.048 Other nonmedicinal substance allergy status
CPT/HCPCS: 36415; 80053; 82150; 83690; 85025; 81001; 81025; 74018; 99284; 96374; 96375; 96361; J2405; C9113

== ENCOUNTER 2020-05-19 10:08 | Day surgery (SDC) | payer BC ==
[2020-05-16 12:04] VITALS: BMI 25.4
[~2020-05-19 10:08] MED LIST: LACTATED RINGERS 1,000 ML IV SCH; LIDOCAINE 1% (10MG/ML) FOR IV START INTRADERMA PRN
[2020-05-19 11:22] VITALS: RESP 16; TEMP 97.4
[2020-05-19] MEDS ORDERED: LIDOCAINE 1% INJ 10MG/ML (20 ML MDV) ONE (11:47)
[2020-05-19] MEDS ORDERED: PROPOFOL 10 MG/ML 20 ML VIAL IV ONE (11:47)
--- NOTE | 2020-05-19 11:56 | P.PCN ---
Date of Procedure: 05/19/20 Procedure(s) Performed: BRIEF HISTORY: Patient is a 34-year-old, pleasant, white female scheduled for an upper endoscopy as part of evaluation of epigastric pain for the last few weeks duration. She had an episode of coffee-ground emesis about 2 weeks ago admitted to the emergency room and was sent omeprazole 20 mg daily and she has been taking since then. She still continues to have epigastric pain but the nausea vomiting has resolved. Scheduled for an upper endoscopy to evaluate further. PROCEDURE PERFORMED: Esophagogastroduodenoscopy with biopsy. PREOPERATIVE DIAGNOSIS: Epigastric pain/nausea vomiting and coffee-ground emesis. IV sedation per anesthesia. PROCEDURE: After informed consent was obtained, the patient was brought into the endoscopy unit. IV sedation was administered by Anesthesia under continuous monitoring. Initially the Olympus GIF-140 video endoscope was inserted into the mouth. Esophagus intubated without any difficulty. It was gradually advanced into the stomach and duodenum and carefully examined. The bulb and the second part of the duodenum appeared normal. Abscesses were done from the duodenum to rule out celiac disease. The scope at this time was withdrawn to the stomach, adequately insufflated with air, and upon careful examination, mucosa of the ant rum, had mild erythema which was biopsied. The body, cardia and the fundus appeared normal. The scope was then withdrawn into the esophagus. The GE junction was located at 37 cm from the incisors. The esophagus appeared normal. There were no erosions or ulcerations seen, biopsies were done from the distal esophagus and the patient tolerated the procedure well. IMPRESSION: 1. Minimal antral gastritis. 2. No evidence of esophagitis or peptic ulcer disease. RECOMMENDATIONS: The findings of this examination were discussed with the patient as well as a family. She was advised to continue with omeprazole 20 mg daily and follow antireflux measures. In the meantime she will follow with the biopsy results..
[2020-05-19 12:22] VITALS: BP 115/69; PULSE 69
== END 2020-05-19 12:38 | disposition home or self-care (01) ==
LOC: ORWHC2ENDO 10:08
PROVIDERS: ATTEND Internal Medicine Gastroenterology
DX: K29.50 Unspecified chronic gastritis without bleeding (principal); F17.210 Nicotine dependence, cigarettes, uncomplicated; M06.9 Rheumatoid arthritis, unspecified; G43.909 Migraine, unspecified, not intractable, without status migrainosus; F32.9 Major depressive disorder, single episode, unspecified; Z91.048 Other nonmedicinal substance allergy status; Z88.0 Allergy status to penicillin; Z88.2 Allergy status to sulfonamides; Z79.899 Other long term (current) drug therapy
CPT/HCPCS: 81025; 88305; 43239; J2001; J2704

== ENCOUNTER → 2020-12-16 | Outpatient (CLI) | payer BC ==
--- NOTE | 2020-12-16 09:38 | US ---
EXAMINATION TYPE: US pelvic complete DATE OF EXAM: 12/16/2020 COMPARISON: CT July 29, 2015 CLINICAL HISTORY: N92.0 EXCESSIVE AND FREQUENT MENSTRATION. TECHNIQUE: Transabdominal (TA). Date of LMP: 12/08/2020 EXAM MEASUREMENTS: Uterus: 10.0 x 5.9 x 7.4 cm Endometrial Stripe: 0.4 cm Right Ovary: 3.6 x 3.5 x 2.3 cm Left Ovary: 3.0 x 3.1 x 1.8 cm 1. Uterus: Retroverted large calcified fibroid measures 3.7 x 3.8 x 4.3 cm. 2. Endometrium: measures 0.4 cm 3. Right Ovary: follicles noted 4. Left Ovary: follicles noted 5. Bilateral Adnexa: wnl 6. Posterior cul-de-sac: no free fluid Retroverted heterogeneous uterus with round partially calcified and shadowing 4.3 cm fundal fibroid. No free fluid. Some deviation of the endometrial stripe due to prominent fundal fibroid. Fibroid susp ected intramural in location. Both ovaries within normal limits. IMPRESSION: Approximately 4.5 cm fundal fibroid with local mass effect.
== END | disposition home or self-care (01) ==
LOC: RADUSWWP 08:50
PROVIDERS: ATTEND Family Medicine
DX: D25.9 Leiomyoma of uterus, unspecified (principal)
CPT/HCPCS: 76856

== ENCOUNTER 2022-04-23 08:54 | Emergency (ER) | payer SELFPAY ==
[2022-04-23 09:29] VITALS: BP 117/83; PULSE 86; RESP 18; TEMP 98.1
== END 2022-04-23 10:30 | disposition left against medical advice (07) ==
LOC: EC 08:54
DX: Z53.21 Procedure and treatment not carried out due to patient leaving prior to being seen by health care provider (principal)
CPT/HCPCS: 87636; 99499

== ENCOUNTER → 2024-01-22 | Outpatient (CLI) | payer BC ==
--- NOTE | 2024-01-23 12:47 | MR ---
EXAMINATION TYPE: MR shoulder RT wo con DATE OF EXAM: 01/22/2024 COMPARISON: None. HISTORY: Right shoulder and arm pain, decreased ROM for one year. TECHNIQUE: Multiplanar, multisequence imaging of the right shoulder is performed without contrast. FINDINGS: Rotator Cuff: Intact supraspinatus and infraspinatus tendons. Intact subscapularis tendon. Rotator cu ff muscle bulk preserved. Acromioclavicular Joint: Mild to moderate capsular hypertrophy. Mild narrowing. Glenohumeral Joint: Small joint effusion. No significant spurring. Labrum: The labrum appears grossly intact given limitation of non-arthrogram study. Biceps Tendon: The long head of biceps is not well identified in normal location within bicipital schuyler ove. Bone marrow signal: No focal abnormal marrow signal is appreciated. Other: Marked fluid adjacent to the supraspinatus tendon and muscle. IMPRESSION: 1. Poor visualization of the long head of biceps tendon. Neither intracapsular or extracapsular porti ons identified. Retracted tear needs to be considered. 2. No rotator cuff tear. Marked subdeltoid/subacromial bursitis. [facility], , 01/23/2024 12:44 PM
== END | disposition home or self-care (01) ==
LOC: RADMRIMAIN 18:09
PROVIDERS: ATTEND Family Medicine
DX: M25.511 Pain in right shoulder